=== PATIENT | female | born 1955 | race Caucasian/White ===

== ENCOUNTER 2016-11-09 11:30 | Day surgery (SDC) | payer SELFPAY ==
[~2016-11-09] VITALS: Ht 154.9 cm; Wt 71.2 kg
[~2016-11-09 11:30] MED LIST: ASPI1TAB PO; GLUCTAB4 PO; VITA250L PO
[2016-11-09] MEDS ORDERED: LR 1,000 ML IV ONE (11:45)
[2016-11-09] MEDS ORDERED: LR 1,000 ML IV SCH ×3 (11:45→16:30)
[2016-11-09] MEDS ORDERED: ceFAZolin SOD 1 GM in D5W MINI-BAG PLUS 50 ML IV ONE (11:45)
[2016-11-09] MEDS ORDERED: VASOPRESSIN INJ 20 UNITS/ML VIAL As Ordered ONE (13:48)
[2016-11-09] MEDS ORDERED: MIDAZOLAM INJ 2 MG/2 ML VIAL (J2250) As Ordered ONE (14:43)
[2016-11-09] MEDS ORDERED: fentaNYL 250 MCG/5 ML INJECTION (J3010) As Ordered ONE (14:43)
[2016-11-09] MEDS ORDERED: dexameTHASONE 4 MG/ML 1ML VIAL (J1100) As Ordered ONE (14:48)
[2016-11-09] MEDS ORDERED: KETOROLAC 60 MG/2 ML VIAL (J1885) As Ordered ONE (14:48)
[2016-11-09] MEDS ORDERED: ONDANSETRON 4MG/2ML VIAL (J2405) As Ordered ONE (14:48)
[2016-11-09] MEDS ORDERED: PROPOFOL 200 MG/20 ML VIAL As Ordered ONE ×2 (14:48→15:52)
[2016-11-09] MEDS ORDERED: LIDOCAINE 2% INJ 100 MG/5 ML SDV (FOR ANES.) As Ordered ONE (14:48)
[2016-11-09] MEDS ORDERED: NORCO, ANEXSIA 5/325MG TABLET (HYDROcodone/ACETAMINOPHEN) PO PRN (16:30)
[2016-11-09] MEDS ORDERED: ONDANSETRON 4MG/2ML VIAL (J2405) IV PRN (16:30)
[2016-11-09] MEDS ORDERED: MORPHINE 2 MG/ML 1ML SYRINGE IV PRN (16:30)
[2016-11-09] MEDS: MEPERIDINE INJ 25 MG/ML VIAL (J2175) IV PRN (16:30)
[2016-11-09] MEDS ORDERED: fentaNYL 100 MCG/2 ML INJECTION (J3010) IV PRN (16:30)
[2016-11-09] MEDS ORDERED: IBUPROFEN 600 MG TAB PO PRN (16:30)
[2016-11-09] MEDS ORDERED: MEPERIDINE INJ 25 MG/ML VIAL (J2175) As Ordered ONE (16:31)
[2016-11-09] MEDS: PERCOCET 5MG/325MG TAB PO PRN ×2 (17:00→17:34)
[2016-11-09] MEDS ORDERED: PERCOCET 5MG/325MG TAB As Ordered ONE (17:33)
[2016-11-09 19:00] VITALS: BP 132/88
--- NOTE | 2016-11-09 19:23 | RO ---
DATE OF PROCEDURE: 11/09/2016 PREOPERATIVE DIAGNOSES: Symptomatic prolapse, stress urinary incontinence, and uterine hypermobility. POSTOPERATIVE DIAGNOSES: Symptomatic prolapse, stress urinary incontinence, and uterine hypermobility. PROCEDURE: [place] colpopexy, mid urethral sling, cystourethroscopy and perineorrhaphy. SURGEON: Nelly Rey MD AGILE SCRUM MASTER: None. ANESTHESIA: Laryngeal mask airway (LMA). BRIEF DESCRIPTION OF PROCEDURE AND FINDINGS: Judith was brought to the operating room where sufficient LMA anesthesia was induced, and she was prepped, draped, and positioned in the usual sterile fashion, her bladder emptied with a catheter. The cervix and uterus and cystocele are quite mobile. She has a superior rectocele/enterocele that is also quite mobile and had better support posteriorly. But under anesthesia it was also clear that there was more peroneal relaxation than had been appreciated when she was no anesthetized and the cystocele was just hanging out obscuring the exam somewhat. So we went ahead with Walt and marked the apex of our dissection at the apex of the vagina and using those as landmarks, we then transected transversely at the right area, at the apex of the vagina so we could tuck that tissue back over the cervix and then made longitudinal incisions to complete the rectangular dissection both anteriorly and posteriorly. Those flaps of tissue held the one anteriorly up and posteriorly we went ahead and transected that across. We took care to be careful to not come too close to the introitus so that we could leave space for the mid urethral sling. We then began the dissection by sewing across at the apex. There was a defect posteriorly close to the cervix. We went ahead with #2-0 Vicryl and closed the rectovaginal septum and pubocervical fascia gap there and also plicated anteriorly to get the cystocele which was larger to the same size and tension as the rectal portion. We then sewed along the lateral aspects of the area of the dissection, the skin already having been removed in the midline. Of course we hydrodissected to facilitate all this and then dissected out and then corrected the defects we noted and then sewed the skin along the lateral aspects, progressing gradually on each side so as to not lose our access to the area to sew it and maintaining good hemostasis as we went because we knew we would not be able to tack this. Having closed front to back, along the sides and superiorly, we had good hemostasis again confirmed. I trimmed a bit posterior just to get it to line up smoothly and then completed the removal of the tissue anteriorly so that we could close the [place]. closing the portion at the introital aspect. We then turned out attention to the mid urethral sling and in a typical fashion, we hydrodissected, made an incision in the anterior vaginal wall that remained, dissected out laterally the tracks for the mesh and then placed a Solyx mini TOT starting first on the right side, then going to the left, and then we had to test the urethroscopy with cysto. We did see a small diverticula which clearly had mucosal lining and not inflamed. It appeared it had been there for some time with normal urethral orifices and no evidence of suture or mesh within the bladder. We then completed the cystoscopy and reevaluated and closed the wound for the anterior mid urethral sling. Reexamining the tissue showed that there was laxity really shown by that repair at the perineum and we definitely felt that the repair would be more effective if we were to plicate there and went ahead and did a perineorrhaphy and a very low rectocele repair, plicating those tissue and then closing after removing a nita shaped area of skin both vaginal and perineal. We then did some deep support stitches into the muscles with #0 Vicryl and then closed the skin with #2-0 Vicryl. We had good plication and repair there and good approximation and hemostasis with the closure. The procedure was then ended. ESTIMATED BLOOD LOSS: About 50 mL. FLUIDS REPLACED: Crystalloid. COMPLICATIONS: None. CONDITION AND DISPOSITION: Judith tolerated the procedure well and was recovering in the recovery room in good condition.
== END 2016-11-09 19:20 | disposition home or self-care (01) ==
LOC: M SDC 11:30
PROVIDERS: ATTEND Obstetrics & Gynecology
DX: N81.4 Uterovaginal prolapse, unspecified (principal); N39.3 Stress incontinence (female) (male); N94.89 Other specified conditions associated with female genital organs and menstrual cycle; N20.0 Calculus of kidney; G43.909 Migraine, unspecified, not intractable, without status migrainosus; M17.0 Bilateral primary osteoarthritis of knee; R06.09 Other forms of dyspnea; Z88.0 Allergy status to penicillin; Z79.82 Long term (current) use of aspirin; Z98.51 Tubal ligation status
CPT/HCPCS: 57120; 57250; 57288; 88302; C1771; J0690; J1100; J1885; J2175; J2250; J2405; J3010